=== PATIENT | male | born 1990 | race Caucasian/White ===

== ENCOUNTER 2017-04-21 15:13 | Emergency (ER) | payer SELFPAY ==
[~2017-04-21] VITALS: Ht 188 cm; Wt 102.1 kg
[2017-04-21 15:42] VITALS: BP_SYST 120
[2017-04-21] MEDS ORDERED: IBUPROFEN 800 MG TABLET PO ONE (18:30)
[2017-04-21] MEDS ORDERED: BACITRACIN 1 GM OINT TP ONE (18:30)
[2017-04-21 19:15] VITALS: BP_SYST 124
== END 2017-04-21 19:15 | disposition home or self-care (01) ==
LOC: SED 15:13
DX: L03.116 Cellulitis of left lower limb (principal); L03.115 Cellulitis of right lower limb; Z90.89 Acquired absence of other organs
CPT/HCPCS: 99283